=== PATIENT | female | born 1985 | race African-American/Black ===

== ENCOUNTER 2017-12-23 16:09 | Emergency (ER) | payer OTHER ==
[~2017-12-23] VITALS: Ht 172.7 cm; Wt 68.0 kg
[~2017-12-23 16:09] MED LIST: ALBUMIN IV; FIORINAL 325 MG1 CAP PO; LEXAPRO20 MG PO; Lovenox40 MG/0.4 PO; TOBRAMYCIN 5 ML5 M1 OP; TRAZODONE50 MG PO; WELLBUTRIN75 MG PO; [UNRECOGNIZED DRUG - REMARK]
[2017-12-23 17:25] LABS: BASO % 0.3 % (0.0-1.0); EOS % 0.2 % (1.0-4.0); HEMATOCRIT 45.4 % (37.0-47.0); HEMOGLOBIN 14.2 g/dl (12.0-16.0); LYMPH # 0.4 10*3/uL (1.3-4.4); LYMPH % 6.4 % (27.0-41.0); MEAN CORPUSCULAR HGB 30.3 pg (27.0-31.0); MEAN CORPUSCULAR HGB CONC 31.3 g/dl (33.0-37.0); MEAN PLATELET VOLUME 10.8 fl (9.6-12.3); MONO # 0.4 10*3/uL (0.1-1.0); NEUT # 5.4 10*3/uL (2.3-7.9); NEUT % 86.8 % (47.0-73.0); PLATELET COUNT AUTOMATED 193 10*3/uL (130-400); RED BLOOD COUNT 4.68 10*6/uL (4.10-5.10); RED CELL DISTRI WIDTH 13.3 % (0-14.5); WHITE BLOOD COUNT 6.2 10*3/uL (4.8-10.8)
[2017-12-23 17:28] LABS: BILIRUBIN NEGATIVE (NEGATIVE); BLOOD NEGATIVE (NEGATIVE); CLARITY CLEAR (CLEAR); COLOR YELLOW (YELLOW); GLUCOSE NEGATIVE (NEGATIVE); KETONE NEGATIVE (NEGATIVE); LEUKO ESTERASE NEGATIVE (NEGATIVE); NITRITE NEGATIVE (NEGATIVE)
[2017-12-23 17:38] LABS: ACT PARTIAL THROMBO TIME 22.7 SECONDS (20.8-31.5)
[2017-12-23] MEDS ORDERED: NEURONTIN300 MG PO (17:38)
[2017-12-23] MEDS ORDERED: GENTAK3.5 GM OP (17:38)
[2017-12-23] MEDS ORDERED: TYLENOL325 M1 PO (17:39)
[2017-12-23] MEDS ORDERED: Duragesic 100100 MCG TD (17:39)
[2017-12-23] MEDS ORDERED: SUDOGEST30 MG PO (17:40)
[2017-12-23] MEDS ORDERED: Magnesium Oxid400 MG PO (17:40)
[2017-12-23] MEDS ORDERED: PHENERGAN25 MG R (17:41)
[2017-12-23] MEDS ORDERED: SCOPOLAMINE1 EAC1 TD (17:41)
[2017-12-23] MEDS ORDERED: ALDACTONE25 MG PO (17:41)
[2017-12-23] MEDS ORDERED: OMEPRAZOLE20 M2 PO (17:41)
[2017-12-23] MEDS ORDERED: CLARITIN10 MG PO (17:42)
[2017-12-23] MEDS ORDERED: PHENOBARBITAL60 MG PO (17:42)
[2017-12-23 17:43] LABS: ACETAMINOPHEN (TYLENOL) 3.3 ug/ml (10-30); ALBUMIN 1.5 gm/dl (3.1-4.5); ALKALINE PHOSPHATASE 98 U/L (45-117); BUN 7 mg/dl (7-24); CHLORIDE 107 mmol/L (98-107); CREATININE 0.52 mg/dL (0.55-1.02); POTASSIUM 3.4 mmol/L (3.5-5.1); SGOT/AST 51 IU/L (3-35); SGPT/ALT 39 U/L (12-78); SODIUM 140 mmol/L (136-145); TOTAL PROTEIN 4.9 gm/dL (6.4-8.2)
[2017-12-23 17:43] LABS: BACTERIA TRACE; EPITHELIAL CELLS 15-20; URINE AMPHETAMINES < 1000 (1000ng/ml); URINE BARBITURATES > 200 (200ng/ml); URINE BENZODIAZEPINES > 200 (200ng/ml); URINE CANNABINOIDS (THC) > 50 (50ng/ml); URINE COCAINE < 300 (300ng/ml); URINE METHADONE < 300 (300ng/ml); URINE OPIATES < 300 (300ng/ml); WBC 0-2 wbc/hpf (0-5)
[2017-12-23] MEDS ORDERED: ZOFRAN4 MG PO (17:43)
[2017-12-23] MEDS ORDERED: LEXAPRO20 MG PO (17:43)
[2017-12-23] MEDS ORDERED: KLONOPIN2 M1 PO (17:44)
[2017-12-23] MEDS ORDERED: Lovenox60 MG/0.6 PO (17:44)
[2017-12-23 17:52] LABS: URINE PHENCYCLIDINE < 25 (25ng/ml)
[2017-12-23 17:53] LABS: BETA-HCG, QUANT < 1.0 mIU/mL (1-3); ETHYL ALCOHOL < 3.0 mg/dl (<3); TROPONIN I < 0.015 ng/ml (<0.045)
[2017-12-23 18:12] VITALS: BP 105/59
== END 2017-12-23 23:49 | disposition left against medical advice (07) ==
LOC: ED 16:09
PROVIDERS: Emergency Medicine
DX: R74.0 Nonspecific elevation of levels of transaminase and lactic acid dehydrogenase [LDH] (principal); F19.90 Other psychoactive substance use, unspecified, uncomplicated; G43.909 Migraine, unspecified, not intractable, without status migrainosus; Z88.8 Allergy status to other drugs, medicaments and biological substances; Z79.899 Other long term (current) drug therapy

== ENCOUNTER 2018-03-14 16:26 | Inpatient (IN) | payer OTHER ==
[~2018-03-14] VITALS: Ht 167.6 cm; Wt 75.6 kg
--- NOTE | ~2018-03-14 | PR ---
[place], [place] PROGRESS NOTE [facility]: [id number] UN[facility] #: [id number] ROOM: 406 DOCTOR: TEODORO CASTRO MD,KENY BIRTHDATE: [birth year] DOS: 03/16/2018 SUBJECTIVE: She has been noted comfortable at this time with improvement in abdominal pain, noted to have an excessive symptoms of shortness of breath, coughing, sputum expectoration or any chest pain. She has been continued antibiotic. The patient per recommendation for the medical management, spontaneous bacterial peritonitis for the gram-negative infection. She has not been noted any symptoms of dysuria, suprapubic pain, or hematuria. Denies any pain of the lower extremity. General weakness was still persistent and partially improved from previously. OBJECTIVE: VITAL SIGNS: Normal temperature, respiratory rate 20, heart rate 89, blood pressure 100/50-90/55. Pulse oxygen saturation on 3 liters nasal cannula 96% saturation. HEENT: Examination shows head was atraumatic. Eyes nonicterus. NECK: Supple. CARDIOVASCULAR: S1, S2 is audible. LUNGS: Patient was noted without any wheezing or crackles. Decreased breath sounds are noted in the mid to lower portion of the lungs bilaterally. ABDOMEN: Soft, nontender. Bowel sounds present. EXTREMITIES: The patient was noted without any acute edema, clubbing or cyanosis. SKIN: No lesions or rashes. CENTRAL NERVOUS SYSTEM: Generalized weakness was still noted, the patient was partially improved from previously where there was no gross focal neurologic deficit. Remaining systems were reviewed with the patient, they were noted all negative. CT of the chest that I ordered yesterday was completed. The CT of the chest was reviewed, shows evidence of moderate sized bilateral pleural fluid with the loculation noted for this patient of the pleural fluid. There was no area of pulmonary infiltration. ESR noted as 5. The CMP that was done this morning shows normal BUN and creatinine. CO2 33. AST 58, ALT normal. Albumin of 1.9. Ionized calcium for the patient that was done yesterday was noted low as well at 3.398. CBC for the patient was noted as normal. Vancomycin trough level 10.8. IMPRESSION: 1. The patient currently noted with spontaneous bacterial peritonitis. The patient with a gram-negative infection, which has been treated with the antibiotics. 2. Bilateral pleural fluid was also noted, loculated and appeared to be chronic. There were no signs of active infection. 3. History of liver cirrhosis. The patient was also noted with a CT scan of the abdomen finding. 4. History of hypercoagulability was also reported for this patient as well. PLAN OF MANAGEMENT: Continuation of antibiotic on advice ____ patient medical management with spontaneous bacterial peritonitis. There was no evidence of pneumonia, chronic loculated pleural fluid at this time, would not require any [place], [place] PROGRESS NOTE NAME: JAYDA CACERES UNIT #: [id number] ROOM: [facility] DOCTOR: KENY SHEPARD MD BIRTHDATE: [birth year] further assessment with the patient's current overall health. She would not tolerate any surgical procedure at the present time, which will be a VATS procedure required bilaterally. Continue to improve the nutritional status as well. Other additional treatment changes, continue to be made for the patient based on the progression of the illness. Usual care, other supportive plan of management and treatment. Continue pain management as well. KENY VALERIO MD CM:PNKIMMY [id number] KENY CASTRO MD 03/16/18 1331 interface
--- NOTE | ~2018-03-14 | PR ---
[place], [place] PROGRESS NOTE NAME: JAYDA CACERES UNIT #: [id number] ROOM: 406 DOCTOR: KENY SHEPARD MD BIRTHDATE: [birth year] DOS: 03/17/2018 SUBJECTIVE: The patient has been noted comfortable at this time. She was noted with shortness of breath with acute exacerbation, receiving intravenous antibiotics, with acute peritonitis. The patient was noted with evidence of Enterobacter cloacae, Klebsiella pneumoniae, both isolative, from the peritoneal fluid of the patient. She was still complaining of abdominal pain, stating the pain has not been completely resolved. Denies any coughing or chest pain. OBJECTIVE: VITAL SIGNS: Normal temperature, respiratory rate 20, heart rate 88, blood pressure 100/57. Pulse oxygen saturation on 2 liters is 95% saturation. HEENT: Shows head was atraumatic, eyes nonicterus. NECK: Supple. CARDIOVASCULAR: S1, S2 audible. LUNGS: Without any crackles or wheezing. Breaths are noted diminished for the patient bilaterally as previously without any changes. ABDOMEN: Soft with some tenderness on palpation. EXTREMITIES: Without any acute edema. LABORATORY DATA: CBC this morning was noted as normal. The CMP for the patient noted normal as well with normal BUN and creatinine. IMPRESSION: 1. The patient has been currently noted with chronic bilateral pleural fluid, etiology unclear, with current acute peritonitis with 2 gram-negative infections, treated with antibiotic under the guidance of Infectious Disease specialist. 2. The patient with history of advanced liver disease with cirrhosis of the liver as well. PLAN OF MANAGEMENT: No changes from the pulmonary standpoint at this time. Continue to maximize the pain management and antibiotic for the patient, changes or further de-escalation per the Infectious Disease specialist. Certainly, vancomycin does not seem to be necessary at this time of assessment. [place], [place] PROGRESS NOTE NAME: JAYDA CACERES ANN UNIT #: [id number] ROOM: 406 DOCTOR: KENY SHEPARD MD BIRTHDATE: [birth year] KENY VALERIO MD CM:PNTRANS [id number] KENY CASTRO MD 03/17/18 1117 interface
--- NOTE | ~2018-03-14 | PR ---
[place], [place] PROGRESS NOTE NAME: JAYDA CACERES UNIT #: [id number] ROOM: 406 DOCTOR: TEODORO CASTRO MD,KENY BIRTHDATE: [birth year] DOS: 03/18/2018 SUBJECTIVE: She has been noted reduction of the pain with current pain management. Shortness of breath has been noted stable. There were no symptoms of chest pain, hemoptysis or sputum expectoration and symptoms of nausea or vomiting. OBJECTIVE: VITAL SIGNS: The patient's temperature recorded normal temperature this morning, was noted 100.2 degrees Fahrenheit yesterday, respiratory rate ranged between 18-20, heart rate of 92-120, blood pressure 160-108/68. Pulse oxygen saturation noted on room air 94% saturation. HEENT: Shows head was atraumatic. Eyes nonicterus. NECK: Supple. CARDIOVASCULAR: S1, S2 is audible. LUNGS: Noted without any wheezing or crackles. The breaths are noted diminished bilaterally. ABDOMEN: Soft with some ascites. EXTREMITIES: Without any acute edema. LABORATORY DATA: Culture of the peritoneal fluid noted with three organism has Klebsiella, Enterobacter cloacae and micrococcus. IMPRESSION: The patient with acute spontaneous bacterial peritonitis, stable respiratory status, chronic bilateral pleural fluid, etiology unclear. PLAN OF TREATMENT: No changes in the plan of care for the patient's pulmonary standpoint. Continue patient's current therapy, plan of care. Other supportive therapy, plan of management and treatments. KENY VALERIO MD CM:PNTRANS [id number] KENY CASTRO MD 03/18/18 1333 interface
--- NOTE | ~2018-03-14 | EKG ---
[place], [place] ELECTROCARDIOGRAM REPORT NAME: JAYDA CACERES UNIT #: [id number] ROOM: 406 DOCTOR: TEODORO CASTRO MD,KENY BIRTHDATE: [birth year] DOS: 03/14/2018 TIME: 4:51 p.m. Electrocardiogram shows sinus tachycardia, heart rate 106 beats per minute. Low voltage EKG noted with nonspecific ST-T changes in the aVF and chest leads. KENY VALERIO MD CM:EKGRPT:ELECTROCARDIOGRAM REPORT [id number] KENY CASTRO MD
--- NOTE | ~2018-03-14 | CON ---
[place], [place] REPORT OF CONSULTATION NAME: JAYDA CACERES UNIT #: [id number] ROOM: 406 DOCTOR: KENY SHEPARD MD BIRTHDATE: [birth year] DOS: 03/15/2018 PULMONARY CONSULTATION, EVALUATION AND MANAGEMENT CONSULTATION REQUESTED BY: Hospitalist services. REASON FOR CONSULTATION: For assessment of the current abnormal findings on the chest x-ray for the pneumonia for pleural effusions. HISTORY OF PRESENT ILLNESS: A 32-year-old for the medical treatment. The patient is an extremely poor historian at this time. History essentially was reviewed, done by the bilingual medical receptionist earlier ____ confirmation as well. Some of the history was completely unknown to the patient as well. 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 The patient has some kind of stenting placement. The details were unknown. She also noted with cirrhosis of the liver or the ascites, which has been drained with the peritoneal fluid. The peritoneal drain catheter with drainage of fluid was done several liters today. Peritoneal catheter has been later on removed. The patient has been currently receiving hospice care for about a year. The patient came into the hospital Emergency Room and she was complaining of symptoms of significant pain, which is described in the abdomen. The pain has been described to be quite diffuse and the patient not managed at home. She was also noted a fever at home. The fever was recorded 103 degree Fahrenheit as well previously. The patient does have symptoms of chills and diarrhea with that. She does have symptoms of a mild cough without any sputum expectoration. Shortness of breath occurs with exertion, not at rest. There were no symptoms of hemoptysis. The patient does have other symptoms of hemoptysis, she described, but unable to quantify or gave me further details of the issues. PAST MEDICAL HISTORY: The patient was reported with: 1. Budd-Chiari syndrome. 2. Ascites of the liver. 3. Question of a history of hepatitis C. 4. History of pericardial effusion reported as well. 5. Hypercoagulable status. 6. Congestive heart failure, whether systolic or diastolic dysfunction, unknown. 7. Recent management with spontaneous bacterial peritonitis reported as well. 8. Seasonal allergies. 9. Tobacco use as well as chronic. PAST SURGICAL HISTORY: 1. T and A. 2. Pericardial window. 3. Mid sternotomy for the patient usually not done for the pericardial window at this time, the details were unknown and missing. 4. Peritoneal catheter placement and then later on removal. 5. ___ for abdominal procedure was done with stent placement; again details were unknown in the abdomen. [place], [place] REPORT OF CONSULTATION NAME: JAYDA CACERES UNIT #: [id number] ROOM: [facility] DOCTOR: KENY SHEPARD MD BIRTHDATE: [birth year] SOCIAL HISTORY: She lives at home. The patient is single, has one child. Smoking started from age of [age] years old, smoked about half a pack of cigarettes per day at this time. FAMILY HISTORY: The patient's father living at 63-year-old with history of essential hypertension. Mother at 61-year-old with history of diabetes mellitus. HOME MEDICATIONS: Medication list on admission, use of Klonopin, Lovenox shot ____ management, Neurontin, Dilaudid, Claritin, magnesium oxide, MS Contin, omeprazole, Zofran, phenobarbital, and Aldactone. DRUG ALLERGIES: ALLERGY TO BENADRYL. PHYSICAL EXAMINATION: GENERAL: This is a 32-year-old -[place] female who is currently sitting on the bed, appeared to be fatigued and tired. Does not show any signs of acute respiratory distress this morning. The height of 5 feet 6 inches, weight of 166 pounds, BMI 26.8. VITAL SIGNS: Normal temperature, respiratory rate 20-28, heart rate of 83-112. Blood pressure 106/53-119/80. Intake for the patient and output was not documented. Pulse ox saturation 92% on room air. HEENT: Head was atraumatic. Eyes nonicterus. NECK: Supple. Oral mucosa moist. CARDIOVASCULAR: S1, S2 audible. LUNGS: The patient was noted with decreased breath sounds noted in the lungs bilaterally. Scattered crackles of the lung was noted in the mid portion of the lung. ABDOMEN: Soft. Bowel sounds present without any acute tenderness. VISIBLE SKIN: No lesions or rashes. MUSCULOSKELETAL: The patient was noted without any gross focal neurologic deficit. LABORATORY DATA: CBC that was done on 03/14/2018, normal WBC count, hemoglobin, hematocrit, and platelet count were normal. Lactic acid noted normal at 1.8 yesterday. The PT and PTT were noted as normal PT and PTT. CMP of the patient on 03/14/2018 was noted BUN 7, creatinine was normal. Calcium uncorrected was 6.6. Albumin 1.2, most likely hypercalcemia related to the hypoalbuminemia. AST noted minimally elevated. The peritoneal fluid analysis noted at 367 WBCs with 34% neutrophils, 14% lymphocytes, and 52 monocytes. The glucose noted 88, protein of 0.4, LDH of 57. CBC of the patient of 03/15/2018 was noted as normal CBC. The Gram stain of the peritoneal fluid was noted with moderate white blood cells, rare gram-positive cocci in pairs, rare gram-negative bacilli with heavy growth of gram-negative bacilli at this time noted. Final culture results were pending. Ultrasound of the abdomen and the liver noted cirrhotic changes of the liver, large area of fatty focal infiltration, which was also seen with a normal portal vein not visualized. 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 Possibility of mass in the central portion of the liver cannot be excluded. Lower portion CT of the thorax were reviewed as well as part of the CT scan of [place], [place] REPORT OF CONSULTATION NAME: JAYDA CACERES UNIT #: [id number] ROOM: [facility] DOCTOR: KENY SHEPARD MD BIRTHDATE: [birth year] the abdomen and pelvis. The patient was noted with significant ascites on the CT scan of the abdomen. Loculated pleural fluid noted medially and anteriorly in both hemithoraces of this patient as well. Without any major consolidation, the fluid also appeared to be tracking into the right minor fissure of the patient. IMPRESSION: 1. The patient who has been currently admitted to the hospital noted with acute abdominal pain with spontaneous bacterial peritonitis gram-negative infection also noted with chronic pleural fluid appeared to be very likely, which is present in hemithorax, etiology unclear. The chest x-ray of the patient in 12/2007 shows bilateral peripheral loculated pleural fluid at that time as well as the patient was assessed in the Emergency Room. 2. Question of pneumonia with some presumed hemoptysis at this time, etiology is unclear. The patient noted chronic anticoagulation. 3. 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 4. History of pericardial window. 5. Mid sternotomy, details were unknown. PLAN OF MANAGEMENT: At this time, the patient was recommended Infectious Disease consultation to make the appropriate changes in medical management of the current abdominal ascites gram-negative infection. She has been receiving several antibiotics that include vancomycin, Rocephin, Levaquin, and Flagyl. The patient could be considered switching to meropenem with similar antibiotics with Zosyn with the use of the vancomycin until the final culture results were known with de-escalation of antibiotic could be done accordingly. I will be ordering CT scan of the chest for this patient as well for further clear assessment of the whole hemithorax. Medical record of the patient has been requested from the [facility] as well as [facility] to understand the patient's current and previous several complex medical problems. Hypercalcemia, which was noted for the patient will be assessed with ionized calcium assessment. Other supportive therapy, plan and management to be ordered for the patient as well. The assessment and management has been discussed in detail for this patient with Dr. Wali Sanchez with the primary care attending. Sampling the pleural fluid of the patient with aggressive intervention might be needed in future. The patient remains full code and required further intervention and that I suggested to be done [facility] a [facility]. Presumed hemoptysis will be monitored. The sputum for Gram stain and culture was ordered as well. Overall prognosis of the patient remains guarded. Thanks for allowing me to participate in the care of this patient. [place], [place] REPORT OF CONSULTATION NAME: JAYDA CACERES UNIT #: [id number] ROOM: 406 DOCTOR: KENY SHEPARD MD BIRTHDATE: [birth year] KENY VALERIO MD CM:CONSTR:REPORT OF CONSULTATION 1313 03/15/18 1643 interface
--- NOTE | ~2018-03-14 | O ---
[place], [place] OPERATIVE NOTE NAME: JAYDA CACERES UNIT #: [id number] ROOM: 406 DOCTOR: JOSE CAPPSDWAYNE BIRTHDATE: [birth year] DOS: 03/16/2018 GASTROENDOSCOPIC REPORT HISTORY OF PRESENT ILLNESS: This is a 32-year-old patient who has presented with multiple medical problems among which has been chronic abdominal pain and she has indwelling catheter in place for periodic paracentesis drainage. She has been initially on hospice list and eventually has been removed and back on the circulation as far as being repeatedly visiting the Emergency Rooms. At this time, her lactic acid was 1.8 at time of admission, white blood cell was 6.7, H and H of 14 and 47 with neutrophils of 85. Comprehensive metabolic panel, GFR greater than 60. Electrolytes balanced, calcium was 6.6 with albumin of 1.2, total protein of 4.5, protein calorie malnourished, emaciated patient, makes sense to have calculated calcium above free calcium of 6. CT scan of the abdomen and pelvic was done wall. Wall thickening of the gastric mucosa, multiple thickened loops of small bowel, diffuse colonic thickening was suggested with severe third spacing of small to moderate loculated pleural effusion as well, hepatic cirrhosis with more severe low attenuation centrally in the liver surrounding the gallbladder considered as fatty infiltration. We are going to work on that and get a serum alpha-fetoprotein level. Hemoglobin A1c was 5.1. Ultrasound of the liver has already cirrhotic with a large area of fatty focal infiltration that has to be ruled out, not to be hepatocellular carcinoma. PAST MEDICAL HISTORY: History of Budd-Chiari syndrome for years, ascites, cirrhosis, hepatitis C, pericardial effusion and congestive heart failure. PAST SURGICAL HISTORY: T and A, pericardial window, chronic peritoneal catheter usage. SOCIAL HISTORY: Smoker actively, nonalcohol consumer. FAMILY HISTORY: Noncontributory. MEDICATIONS: Reviewed. ALLERGIES: BENADRYL. PROCEDURE: Today's procedure part of investigation is colonoscopy plus biopsy. PREMEDICATION: Propofol. SCOPE: Olympus folding colonoscope 10L video. REPORT: After putting the patient in left lateral position and application of lubricant to the scope, the scope was introduced. Thereafter, under direct visualization, advanced through the length of colon without difficulty. Some retained stool throughout the length of colon was identified. Mild edema of the mucosa was identified. There is no ulceration. There is no obstruction or distortion. A biopsy was obtained randomly for documentation of nonspecific [place], [place] OPERATIVE NOTE NAME: JAYDA CACERES UNIT #: [id number] ROOM: [facility] DOCTOR: JOSE CAPPS,DWAYNE BIRTHDATE: [birth year] colitis and nothing beyond. Air was suctioned out. The patient was extubated, tolerated the procedure well. IMPRESSION: Nonspecific colitis, status post biopsy. PLAN AND DISCUSSION: Supportive therapy. Workup in progress. We are going to obtain a serum alpha-fetoprotein for the fatty infiltration suspected in the liver in isolated forms in a patient with a history of chronic cirrhosis to rule out hepatocellular carcinoma. Follow-up colonoscopy in 10 years unless patient has symptoms for which follow-up should be sooner. DWAYNE GARCIA MD CM:OPRECORD:OPERATIVE NOTE [id number] DWAYNE GARCIA MD 04/05/18 0755 interface
[~2018-03-14 16:26] MED LIST changes: +ALDACTONE25 MG PO; +CLARITIN10 MG PO; +Duragesic 100100 MCG TD; +GENTAK3.5 GM OP; +KLONOPIN2 M1 PO; +Lovenox60 MG/0.6 PO; +Magnesium Oxid400 MG PO; +NEURONTIN300 MG PO; +OMEPRAZOLE20 M2 PO; +PHENERGAN25 MG R; +PHENOBARBITAL60 MG PO; +SCOPOLAMINE1 EAC1 TD; +SUDOGEST30 MG PO; +TYLENOL325 M1 PO; +ZOFRAN4 MG PO
[2018-03-14 16:28] VITALS: BP 119/80
[2018-03-14] MEDS ORDERED: DILAUDID4 MG PO (16:41)
[2018-03-14] MEDS ORDERED: MORPHINE S10 MG/5 M1 PO (16:43)
[2018-03-14 17:04] LABS: BASO % 0.6 % (0.0-1.0); EOS % 0.6 % (1.0-4.0); HEMOGLOBIN 14.9 g/dl (12.0-16.0); LYMPH # 0.5 10*3/uL (1.3-4.4); LYMPH % 6.8 % (27.0-41.0); MEAN CELL VOLUME 96.5 fl (81.0-99.0); MEAN CORPUSCULAR HGB 30.6 pg (27.0-31.0); MEAN CORPUSCULAR HGB CONC 31.7 g/dl (33.0-37.0); MEAN PLATELET VOLUME 9.6 fl (9.6-12.3); MONO # 0.4 10*3/uL (0.1-1.0); MONO % 5.9 % (3.0-9.0); NEUT # 5.7 10*3/uL (2.3-7.9); NEUT % 85.5 % (47.0-73.0); PLATELET COUNT AUTOMATED 384 10*3/uL (130-400); RED BLOOD COUNT 4.87 10*6/uL (4.10-5.10); RED CELL DISTRI WIDTH 13.9 % (0-14.5); WHITE BLOOD COUNT 6.7 10*3/uL (4.8-10.8)
[2018-03-14 17:12] LABS: ACT PARTIAL THROMBO TIME 22.9 SECONDS (20.8-31.5)
[2018-03-14 17:21] LABS: ALBUMIN 1.2 gm/dl (3.1-4.5); ALKALINE PHOSPHATASE 112 U/L (45-117); BUN 7 mg/dl (7-24); CHLORIDE 105 mmol/L (98-107); CREATININE 0.46 mg/dL (0.55-1.02); LIPASE 70 U/L (73-393); POTASSIUM 3.5 mmol/L (3.5-5.1); SGOT/AST 37 IU/L (3-35); SGPT/ALT 20 U/L (12-78); SODIUM 141 mmol/L (136-145); TOTAL PROTEIN 4.5 gm/dL (6.4-8.2)
[2018-03-14 17:28] LABS: TROPONIN I < 0.015 ng/ml (<0.045)
[2018-03-14 17:31] LABS: BODY FLUID WBC 367 /uL
[2018-03-14 18:13] LABS: BF LYMPHOCYTES 14 %; BF MONOCYTES 52 %; BF NEUTROPHILS 34 %
[2018-03-14 18:50] VITALS: BP 103/70
[2018-03-14 19:42] VITALS: BP 116/74
[2018-03-14 19:45] VITALS: BP 116/74
[2018-03-15] VITALS: BP 100/70
[2018-03-15 07:44] LABS: BASO # 0.1 10*3/uL (0.0-0.1); EOS # 0.1 10*3/uL (0.0-0.4); EOS % 1.4 % (1.0-4.0); HEMATOCRIT 45.6 % (37.0-47.0); HEMOGLOBIN 14.4 g/dl (12.0-16.0); LYMPH # 0.5 10*3/uL (1.3-4.4); LYMPH % 9.7 % (27.0-41.0); MEAN CELL VOLUME 96.8 fl (81.0-99.0); MEAN CORPUSCULAR HGB 30.6 pg (27.0-31.0); MEAN CORPUSCULAR HGB CONC 31.6 g/dl (33.0-37.0); MEAN PLATELET VOLUME 10.2 fl (9.6-12.3); MONO # 0.4 10*3/uL (0.1-1.0); MONO % 8.2 % (3.0-9.0); NEUT % 78.9 % (47.0-73.0); PLATELET COUNT AUTOMATED 358 10*3/uL (130-400); RED BLOOD COUNT 4.71 10*6/uL (4.10-5.10)
[2018-03-15 08:00] VITALS: BP 105/63
[2018-03-15 08:31] LABS: ALBUMIN 1.7 gm/dl (3.1-4.5); ALKALINE PHOSPHATASE 92 U/L (45-117); BUN 6 mg/dl (7-24); CHLORIDE 106 mmol/L (98-107); CHOLESTEROL 93 mg/dL (<200); CREATININE 0.39 mg/dL (0.55-1.02); FREE T4 0.86 ng/dl (0.76-1.46); HDL CHOLESTEROL 32 mg/dl (40-60); LDL CHOLESTEROL 46 mg/dL (9-159); PHOSPHOROUS 3.2 mg/dL (2.5-4.9); POTASSIUM 4.3 mmol/L (3.5-5.1); SGOT/AST 37 IU/L (3-35); SGPT/ALT 19 U/L (12-78); SODIUM 141 mmol/L (136-145); TOTAL PROTEIN 4.8 gm/dL (6.4-8.2); TRIGLYCERIDES 75 mg/dl (<150); VLDL CHOLESTEROL 15 mg/dL (6-40)
[2018-03-15 11:42] LABS: VITAMIN D, 25-HYDROXY 6.7 ng/mL (30-100)
[2018-03-15 12:00] VITALS: BP 106/65
[2018-03-15 15:21] LABS: BILIRUBIN NEGATIVE (NEGATIVE); BLOOD NEGATIVE (NEGATIVE); CLARITY CLEAR (CLEAR); COLOR STRAW (YELLOW); GLUCOSE NEGATIVE (NEGATIVE); KETONE NEGATIVE (NEGATIVE); LEUKO ESTERASE NEGATIVE (NEGATIVE); NITRITE NEGATIVE (NEGATIVE); SPECIFIC GRAVITY <= 1.005 (1.005-1.030); UROBILINOGEN 0.2 E.U./dl (0.2-1.0)
[2018-03-15 15:30] LABS: URINE CREATININE RANDOM < 13.00 mg/dL
[2018-03-15 15:38] LABS: EPITHELIAL CELLS 0-2; WBC 0-2 wbc/hpf (0-5)
[2018-03-15 16:00] VITALS: BP 113/75
[2018-03-15 20:00] VITALS: BP 100/69
[2018-03-16] VITALS (10 sets, daily range): BP systolic 92–130; BP diastolic 40–70
[2018-03-16 07:46] LABS: BASO % 0.8 % (0.0-1.0); EOS # 0.1 10*3/uL (0.0-0.4); EOS % 1.3 % (1.0-4.0); HEMATOCRIT 43.6 % (37.0-47.0); HEMOGLOBIN 13.6 g/dl (12.0-16.0); LYMPH # 0.5 10*3/uL (1.3-4.4); LYMPH % 11.1 % (27.0-41.0); MEAN CORPUSCULAR HGB 30.6 pg (27.0-31.0); MEAN CORPUSCULAR HGB CONC 31.2 g/dl (33.0-37.0); MEAN PLATELET VOLUME 9.7 fl (9.6-12.3); MONO # 0.5 10*3/uL (0.1-1.0); MONO % 10.5 % (3.0-9.0); NEUT # 3.6 10*3/uL (2.3-7.9); NEUT % 75.9 % (47.0-73.0); PLATELET COUNT AUTOMATED 331 10*3/uL (130-400); RED BLOOD COUNT 4.45 10*6/uL (4.10-5.10); RED CELL DISTRI WIDTH 14.1 % (0-14.5); WHITE BLOOD COUNT 4.8 10*3/uL (4.8-10.8)
[2018-03-16 08:12] LABS: ALBUMIN 1.9 gm/dl (3.1-4.5); ALKALINE PHOSPHATASE 118 U/L (45-117); BUN 6 mg/dl (7-24); CHLORIDE 106 mmol/L (98-107); CREATININE 0.41 mg/dL (0.55-1.02); LIPASE 64 U/L (73-393); PHOSPHOROUS 2.9 mg/dL (2.5-4.9); POTASSIUM 3.6 mmol/L (3.5-5.1); SGOT/AST 58 IU/L (3-35); SGPT/ALT 28 U/L (12-78); SODIUM 142 mmol/L (136-145); TOTAL PROTEIN 4.7 gm/dL (6.4-8.2)
[2018-03-17] VITALS: BP 109/52
[2018-03-17 07:25] LABS: BASO % 0.3 % (0.0-1.0); EOS % 0.5 % (1.0-4.0); HEMATOCRIT 41.8 % (37.0-47.0); HEMOGLOBIN 13.1 g/dl (12.0-16.0); LYMPH # 0.4 10*3/uL (1.3-4.4); LYMPH % 5.7 % (27.0-41.0); MEAN CELL VOLUME 97.2 fl (81.0-99.0); MEAN CORPUSCULAR HGB 30.5 pg (27.0-31.0); MEAN CORPUSCULAR HGB CONC 31.3 g/dl (33.0-37.0); MEAN PLATELET VOLUME 9.8 fl (9.6-12.3); MONO # 0.5 10*3/uL (0.1-1.0); MONO % 5.9 % (3.0-9.0); NEUT # 6.6 10*3/uL (2.3-7.9); NEUT % 87.2 % (47.0-73.0); PLATELET COUNT AUTOMATED 300 10*3/uL (130-400); RED CELL DISTRI WIDTH 14.2 % (0-14.5); WHITE BLOOD COUNT 7.6 10*3/uL (4.8-10.8)
[2018-03-17 07:41] LABS: ALBUMIN 1.6 gm/dl (3.1-4.5); ALKALINE PHOSPHATASE 104 U/L (45-117); BUN 8 mg/dl (7-24); CHLORIDE 108 mmol/L (98-107); CREATININE 0.46 mg/dL (0.55-1.02); POTASSIUM 3.5 mmol/L (3.5-5.1); SGOT/AST 43 IU/L (3-35); SODIUM 143 mmol/L (136-145); TOTAL PROTEIN 4.4 gm/dL (6.4-8.2)
[2018-03-17 07:47] LABS: SGPT/ALT 26 U/L (12-78)
[2018-03-17 08:00] VITALS: BP 100/57
[2018-03-17 12:00] VITALS: BP 131/70
[2018-03-17 16:00] VITALS: BP 120/70
[2018-03-17 20:00] VITALS: BP 106/60
[2018-03-18 00:16] VITALS: BP 100/60
[2018-03-18 07:51] LABS: BASO % 0.4 % (0.0-1.0); EOS % 0.4 % (1.0-4.0); HEMOGLOBIN 12.5 g/dl (12.0-16.0); LYMPH # 0.5 10*3/uL (1.3-4.4); LYMPH % 6.8 % (27.0-41.0); MEAN CELL VOLUME 97.3 fl (81.0-99.0); MEAN CORPUSCULAR HGB 30.4 pg (27.0-31.0); MEAN CORPUSCULAR HGB CONC 31.3 g/dl (33.0-37.0); MEAN PLATELET VOLUME 10.5 fl (9.6-12.3); MONO # 0.5 10*3/uL (0.1-1.0); MONO % 6.1 % (3.0-9.0); NEUT # 6.4 10*3/uL (2.3-7.9); NEUT % 85.9 % (47.0-73.0); PLATELET COUNT AUTOMATED 256 10*3/uL (130-400); RED BLOOD COUNT 4.11 10*6/uL (4.10-5.10); RED CELL DISTRI WIDTH 14.1 % (0-14.5); WHITE BLOOD COUNT 7.4 10*3/uL (4.8-10.8)
[2018-03-18 08:00] VITALS: BP 108/68
[2018-03-18 08:03] LABS: ALBUMIN 1.3 gm/dl (3.1-4.5); BUN 5 mg/dl (7-24); CHLORIDE 107 mmol/L (98-107); PHOSPHOROUS 1.9 mg/dL (2.5-4.9); POTASSIUM 3.6 mmol/L (3.5-5.1); SGOT/AST 34 IU/L (3-35); SGPT/ALT 19 U/L (12-78); SODIUM 138 mmol/L (136-145); TOTAL PROTEIN 4.6 gm/dL (6.4-8.2)
[2018-03-18 08:05] LABS: ALKALINE PHOSPHATASE 99 U/L (45-117)
[2018-03-18 12:00] VITALS: BP 121/67
[2018-03-18] MEDS ORDERED: LEVAQUIN500 M2 PO (12:40)
== END 2018-03-18 14:46 | disposition hospice, home (50) | DRG 871 ==
LOC: ED 16:26 → 4E 18:32 → EDHOLD 18:32 → 4E 18:57
PROVIDERS: Emergency Medicine; Internal Medicine; Internal Medicine Nephrology; Nurse Practitioner Family; Student in an Organized Health Care Education/Training Program
PROC: 02HV33Z Insertion of Infusion Device into Superior Vena Cava, Percutaneous Approach (ICD-10-PCS; principal; 2018-03-16)
PROC: 0DBM8ZX Excision of Descending Colon, Via Natural or Artificial Opening Endoscopic, Diagnostic (ICD-10-PCS; principal; 2018-03-16)
PROC: B548ZZA Ultrasonography of Superior Vena Cava, Guidance (ICD-10-PCS; principal; 2018-03-16)
DX: A41.9 Sepsis, unspecified organism (principal); J18.9 Pneumonia, unspecified organism; I82.0 Budd-Chiari syndrome; E43 Unspecified severe protein-calorie malnutrition; J90 Pleural effusion, not elsewhere classified; J96.10 Chronic respiratory failure, unspecified whether with hypoxia or hypercapnia; K65.2 Spontaneous bacterial peritonitis; D68.59 Other primary thrombophilia; K76.6 Portal hypertension; R18.8 Other ascites; I95.9 Hypotension, unspecified; I50.9 Heart failure, unspecified; K74.60 Unspecified cirrhosis of liver; K52.9 Noninfective gastroenteritis and colitis, unspecified; Y95 Nosocomial condition; K29.70 Gastritis, unspecified, without bleeding; E86.0 Dehydration; R74.0 Nonspecific elevation of levels of transaminase and lactic acid dehydrogenase [LDH]; K76.0 Fatty (change of) liver, not elsewhere classified; J30.2 Other seasonal allergic rhinitis; F12.90 Cannabis use, unspecified, uncomplicated; E55.9 Vitamin D deficiency, unspecified; E78.5 Hyperlipidemia, unspecified; F32.9 Major depressive disorder, single episode, unspecified; F41.9 Anxiety disorder, unspecified; K21.9 Gastro-esophageal reflux disease without esophagitis; F17.210 Nicotine dependence, cigarettes, uncomplicated; K72.90 Hepatic failure, unspecified without coma; B96.1 Klebsiella pneumoniae [K. pneumoniae] as the cause of diseases classified elsewhere; Z66 Do not resuscitate; Z51.5 Encounter for palliative care; Z88.8 Allergy status to other drugs, medicaments and biological substances; Z79.899 Other long term (current) drug therapy; Z90.89 Acquired absence of other organs; Z83.3 Family history of diabetes mellitus; Z80.8 Family history of malignant neoplasm of other organs or systems; Z82.49 Family history of ischemic heart disease and other diseases of the circulatory system; Z68.26 Body mass index [BMI] 26.0-26.9, adult